=== PATIENT | female | born 1960 | race Caucasian/White ===

== ENCOUNTER → 2017-11-15 | Outpatient (CLI) | payer MEDICARE, OTHER ==
--- NOTE | 2017-11-15 13:41 | FL ---
EXAMINATION TYPE: FL barium enema DATE OF EXAM: 11/15/2017 CLINICAL HISTORY: TECHNIQUE: A contrast barium enema study is performed. COMPARISON: None. 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 The colon is qu ite redundant. No evidence of any mass or polyp, obstructing or constricting lesion throughout the co sarath. Mucosal pattern is within normal limits. There is scattered diverticulosis without diverticuliti s. The terminal ileum was refluxed and appears within normal limits. IMPRESSION: 1. Redundant colon. 2. Scattered diverticula without evidence for diverticulitis.
== END | disposition home or self-care (01) ==
LOC: RADFLMAIN 11:49
PROVIDERS: ATTEND Internal Medicine Gastroenterology
DX: Q43.8 Other specified congenital malformations of intestine (principal)
CPT/HCPCS: 74270

== ENCOUNTER 2019-01-23 09:11 | Day surgery (SDC) | payer MEDICARE, OTHER ==
[2019-01-21 15:56] VITALS: BMI 34.1
[~2019-01-23 09:11] MED LIST: LACTATED RINGERS 1,000 ML IV SCH
[2019-01-23 09:31] VITALS: RESP 16; TEMP 96.6
[2019-01-23] MEDS ORDERED: LIDOCAINE 1% 20 ML VIAL (10MG/ML) FOR IV START SQ ONE (09:37)
[2019-01-23] MEDS ORDERED: PROPOFOL 10 MG/ML 20 ML VIAL IV ONE (10:27)
[2019-01-23] MEDS ORDERED: LIDOCAINE 1% INJ 10MG/ML (20 ML MDV) ONE (10:27)
--- NOTE | 2019-01-23 10:38 | P.PCN ---
Date of Procedure: 01/23/19 Procedure(s) Performed: BRIEF HISTORY: Patient is a 58-year-old, pleasant, white female, scheduled for an upper endoscopy as a part of evaluation of long-standing history of GERD and Moreno's esophagus. Last upper endoscopy was 2 years ago. Presently on omeprazole 20 mg daily and Zantac at bedtime and doing well. She is scheduled for a surveillance upper endoscopy today.. PROCEDURE PERFORMED: Esophagogastroduodenoscopy with biopsy. PREOPERATIVE DIAGNOSIS:. Rest Moreno's esophagus. IV sedation per anesthesia. PROCEDURE: After informed consent was obtained, the patient was brought into the endoscopy unit. IV sedation was administered by Anesthesia under continuous monitoring. Initially the Olympus GIF-140 video endoscope was inserted into the mouth. Esophagus intubated without any difficulty. It was gradually advanced into the stomach and duodenum and carefully examined. The bulb and the second part of the duodenum appeared normal. The scope at this time was withdrawn to the stomach, adequately insufflated with air, and upon careful examination, mucosa of the antrum, body, cardia and the fundus appeared normal. The scope was then withdrawn into the esophagus. The size hiatal hernia noted The GE junction was located at 35 cm from the incisors. There was a long segment of Moreno's esophagus extending from 31-35 cm from the incisors which appears most with no nodularity. Multiple biopsies were done from this area. The esophagus appeared normal. There were no erosions or ulcerations seen and the patient tolerated the procedure well. IMPRESSION: 1. Long segment Moreno's esophagus extending from 31-35 cm from the incisors status post multiple biopsies. 2. Moderate Size hiatal hernia. RECOMMENDATIONS: The findings of this examination were discussed with the patient well as his her family. She was advised to follow with the biopsy results. If the biopsy does not show any evidence of dysplasia, she can have a repeat upper endoscopy in 2 years.
[2019-01-23 11:27] VITALS: BP 144/78; PULSE 66
== END 2019-01-23 11:28 | disposition home or self-care (01) ==
LOC: ORWHC2ENDO 09:11
PROVIDERS: ATTEND Internal Medicine Gastroenterology
DX: K22.70 Barrett's esophagus without dysplasia (principal); K44.9 Diaphragmatic hernia without obstruction or gangrene; Z79.899 Other long term (current) drug therapy; Z87.891 Personal history of nicotine dependence
CPT/HCPCS: 88305; 43239; J2001; J2704